=== PATIENT | male | born 1960 | race Caucasian/White ===

== ENCOUNTER 2018-08-31 07:52 | Emergency (ER) | payer SELFPAY ==
[~2018-08-31] VITALS: Wt 80.0 kg
[2018-08-31] MEDS ORDERED: ONDANSETRON 4 MG INJ IV STA (08:37)
[2018-08-31] MEDS ORDERED: LORAZEPAM 2 MG INJ IV STA (08:37)
[2018-08-31] MEDS ORDERED: SOD CHLORIDE 0.9% 1,000 ML IV STA (08:37)
[2018-08-31] MEDS ORDERED: MAGNESIUM SULFATE 2 GM, MULTIVITAMINS 10 ML, THIAMINE 100 MG, FOLIC ACID 1 MG in SOD CH... IV STA (08:37)
--- NOTE | 2018-08-31 10:05 | ERD ---
ER Documentation Chief Complaint Chief Complaint AP, BEEN DRINKING X 10 DAYS HPI This is a 57-year-old male with a history of alcohol abuse who presents to the ER for evaluation of abdominal cramping, nausea, vomiting. He states that he has been drinking liquor for the past 10 days. He denies any homicidal suicidal ideation and localized the pain to the midportion of the abdomen. Patient denies any fevers or chest pain or shortness of breath at this time. ROS All systems reviewed and are negative except as per history of present illness. PMhx/Soc Medical and Surgical Hx: Unable to obtain Hx Alcohol Use: Yes (binge for 10 days) Hx Substance Use: No Hx Tobacco Use: No Smoking Status: Never smoker Physical Exam Vitals Vital Signs Date Temp Pulse Resp B/P (MAP) Pulse Ox O2 O2 Flow FiO2 Time Delivery Rate 08/31/18 110 19 132/87 95 Room Air 09:14 (102) 08/31/18 98.0 141 18 178/99 99 07:54 (125) Physical Exam INITIAL VITAL SIGNS: Reviewed by me GENERAL: The patient is able to appearance, no acute distress HEENT: Dry mucous membranes, pupils equal, round, and reactive to light. EOMI. There is no scleral icterus. NECK: C-spine is soft and supple, there is no meningismus. There is no cervical lymphadenopathy. LUNGS: Clear to auscultation bilaterally. There are no rales, wheezes or rhonchi. HEART: Tachycardic, no murmurs, clicks, rubs or gallops. ABDOMEN: Soft, non-tender, non-distended. There are bowel sounds in all four quadrants. No rebound or guarding. EXTREMITIES: There is no peripheral cyanosis or edema. No focal swelling or erythema. NEUROLOGICAL: The patient moves all four extremities with 5/5 strength. Cranial nerves II - XII are intact. Normal gait. Alert and oriented SKIN: There is no apparent rash or petechiae. HEME/LYMPHATIC: There is no evidence of excessive bruising or lymphedema. PSYCHIATRIC: The patient does not appear anxious or depressed. Result Diagram: 08/31/1890308/31/18903 Results 24 hrs Laboratory Tests Test 08/31/18 09:04 White Blood Count 10.1 10^3/ul Red Blood Count 6.08 10^6/ul Hemoglobin 17.2 g/dl Hematocrit 49.5 % Mean Corpuscular Volume 81.4 fl Mean Corpuscular Hemoglobin 28.3 pg Mean Corpuscular Hemoglobin Concent 34.7 g/dl Red Cell Distribution Width 12.7 % Platelet Count 275 10^3/UL Mean Platelet Volume 10.9 fl Immature Granulocytes % 0.900 % Neutrophils % 73.1 % Lymphocytes % 16.2 % Monocytes % 8.8 % Eosinophils % 0.1 % Basophils % 0.9 % Nucleated Red Blood Cells % 0.0 /100WBC Immature Granulocytes # 0.090 10^3/ul Neutrophils # 7.4 10^3/ul Lymphocytes # 1.6 10^3/ul Monocytes # 0.9 10^3/ul Eosinophils # 0.0 10^3/ul Basophils # 0.1 10^3/ul Nucleated Red Blood Cells # 0.0 10^3/ul Sodium Level 140 mmol/L Potassium Level 4.5 mmol/L Chloride Level 97 mmol/L Carbon Dioxide Level 24 mmol/L Anion Gap 19 Blood Urea Nitrogen 7 mg/dl Creatinine 0.72 mg/dl Est Glomerular Filtrat Rate mL/min > 60 mL/min Glucose Level 151 mg/dl Calcium Level 9.9 mg/dl Magnesium Level 2.0 mg/dl Total Bilirubin 0.7 mg/dl Direct Bilirubin 0.00 mg/dl Indirect Bilirubin 0.7 mg/dl Aspartate Amino Transf (AST/SGOT) 63 IU/L Alanine Aminotransferase (ALT/SGPT) 42 IU/L Alkaline Phosphatase 96 IU/L Troponin I < 0.012 ng/ml Total Protein 8.9 g/dl Albumin 5.2 g/dl Globulin 3.70 g/dl Albumin/Globulin Ratio 1.40 Lipase 286 U/L Salicylates Level < 1.0 mg/dl Acetaminophen Level < 10.0 ug/ml Ethyl Alcohol Level 185.0 mg/dl Current Medications Medications Dose Sig/Barbi Start Time Status Last (Trade) Ordered Route PRN Stop Time Admin Dose Reason Admin Sodium 1,000 ml @ Q1H STAT 08/31/18 DC 08/31/18 Chloride 1,000 mls/hr IV 08:37 08/31/18 08:57 09:36 Ondansetron 4 mg ONCE STAT 08/31/18 DC 08/31/18 HCl (Zofran IV 08:37 08/31/18 08:58 Inj) 08:40 Magnesium 1,015.2 ml Q2H2M STAT 08/31/18 08/31/18 Sulfate 2 @ 500 mls/ IV 08:37 08/31/18 09:32 gm/ hr 10:38 Multivitamins 10 ml/Thiamine HCl 100 mg/Folic Acid 1 mg/Sodium Chloride Lorazepam 1 mg ONCE STAT 08/31/18 DC 08/31/18 (Ativan) IV 08:37 08/31/18 08:58 08:40 Procedures/MDM EKG: Rate/Rhythm: Sinus tachycardia QRS, ST, T-waves: [No changes consistent w/ acute ischemia] Impression: [No evidence of ischemia or arrhythmia] Chest X-ray 1V Interpreted by me: Soft Tissue: No acute abnormalities Bones: No acute abnormalities Mediastinum/Cardiac Silhouette/Lungs: [No acute abnormalities] This 57-year-old male presents to the emergency room for evaluation of abdominal cramping. On my examination the patient was tachycardic with dry mucous membranes. The patient did have an IV line established she was given 1 mg of Ativan, he is given 1 L fluids and a banana bag. Lab work is within normal limits including a lipase level. On reevaluation the patient's heart rate is now 99 bpm. He states he is feeling much better. The patient likely has alcoholic gastritis with a possible component of withdrawal. The patient will be discharged at this time with a prescription for Zantac and Librium. He was given strict return precautions. The patient does verbalize understanding and is okay with the plan of care at this time. Departure Diagnosis: Primary Impression: Alcohol withdrawal Additional Impressions: Dehydration Abdominal pain Condition: GAYE Gomez DO Aug 31, 2018 10:05
[2018-08-31] MEDS ORDERED: CHLO25CA9 PO (10:14)
[2018-08-31] MEDS ORDERED: RANI150T35 PO (10:14)
[2018-08-31 10:59] VITALS: BP 137/87; PULSE 122; RESP 18
== END 2018-08-31 11:24 | disposition home or self-care (01) ==
LOC: E/R 07:52
DX: R10.9 Unspecified abdominal pain (principal); F10.239 Alcohol dependence with withdrawal, unspecified; E86.0 Dehydration
CPT/HCPCS: 36415; 71045; 80053; 80307; 81001; 83690; 83735; 84484; 85025; 96374; 96375; 99284; J2060; J2405; J3411; J3475; J7030

== ENCOUNTER 2018-11-13 07:09 | Emergency (ER) | payer MEDICAID ==
[~2018-11-13] VITALS: Ht 172.7 cm; Wt 75.8 kg
[~2018-11-13 07:09] MED LIST: CHLO25CA9 PO; RANI150T35 PO
[2018-11-13 07:14] VITALS: Ht 172.7 cm; Wt 75.8 kg
[2018-11-13] MEDS ORDERED: FAMOTIDINE 20 MG INJ IV STA (07:24)
[2018-11-13] MEDS ORDERED: SOD CHLORIDE 0.9% 1,000 ML IV STA (07:24)
[2018-11-13] MEDS ORDERED: DEXTROSE 5%-0.45% NACL 500 ML BAG IV ONE (07:30)
[2018-11-13] MEDS ORDERED: FOLIC ACID 1 MG TAB PO ONE (07:30)
[2018-11-13] MEDS ORDERED: THIAMINE 100 MG TAB PO ONE (07:30)
[2018-11-13] MEDS ORDERED: DIAZEPAM 5 MG/ML SYG IV ONE (07:30)
--- NOTE | 2018-11-13 07:39 | ERD ---
ER Documentation Chief Complaint Chief Complaint abdominal pain ; been drinking alcohol x 1 week HPI 58 yo M with hx of etoh abuse here with N/V diarrhea. Epigastric and periumbilical abdominal pain that is present for 1 week, mild. On Bactrim for possible UTI, hx of BPH. No CP and no significant SOB. No hematemesis or melena noted. States he has to drink to make the pain better. During the patient's encounter translation services were utilized Language: Serbian Source: Video ROS All systems reviewed and are negative except as per history of present illness. Medications Home Meds Active Scripts Famotidine* (Pepcid*) 20 Mg Tablet, 20 MG PO BID for 10 Days, TAB Prov:MIRIAN CABRERA MD 11/13/18 Chlordiazepoxide* (Chlordiazepoxide*) 25 Mg Capsule, 25 MG PO Q8 PRN for CONTROL WITHDRAWAL SYMPTOMS, #10 CAP Prov:GAYE JEAN DO 08/31/18 Ranitidine Hcl* (Zantac*) 150 Mg Tablet, 150 MG PO BID PRN for EPIGASTRIC PAIN, #30 TAB Prov:GAYE JEAN DO 08/31/18 Allergies Allergies: Coded Allergies: No Known Allergy (Unverified , 11/13/18) PMhx/Soc History of Surgery: No Anesthesia Reaction: No Hx Neurological Disorder: No Hx Respiratory Disorders: No Hx Cardiac Disorders: No Hx Psychiatric Problems: No Hx Miscellaneous Medical Probl: Yes (prostate) Hx Alcohol Use: Yes (binge for 10 days) Hx Substance Use: No Hx Tobacco Use: Yes Smoking Status: Current some day smoker FmHx Family History: No diabetes Physical Exam Vitals Vital Signs Date Temp Pulse Resp B/P (MAP) Pulse Ox O2 O2 Flow FiO2 Time Delivery Rate 11/13/18 98.8 103 25 127/87 99 07:14 (100) Physical Exam General: Well developed, well nourished, no acute distress Head: Normocephalic, atraumatic. Eyes: Pupils equally reactive, EOM intact ENT: Moist mucous membranes Neck: Supple, no lymphadenopathy Respiratory: Lungs clear bilaterally, no distress Cardiovascular: RRR, no murmurs, rubs, or gallops Abdominal: Soft, non-tender, non-distended, no peritoneal signs, neg Daniel's : Deferred MSK: No edema, no unilateral swelling, 5/5 strength Neurologic: Alert and oriented, moving all extremities, normal speech, no focal weakness, no cerebellar signs, no tremor Skin: No rash Psych: Normal mood Result Diagram: 11/13/18 0744 11/13/18 0744 Results 24 hrs Laboratory Tests Test 11/13/18 07:44 White Blood Count 8.4 10^3/ul Red Blood Count 5.46 10^6/ul Hemoglobin 15.7 g/dl Hematocrit 45.1 % Mean Corpuscular Volume 82.6 fl Mean Corpuscular Hemoglobin 28.8 pg Mean Corpuscular Hemoglobin Concent 34.8 g/dl Red Cell Distribution Width 12.9 % Platelet Count 268 10^3/UL Mean Platelet Volume 10.7 fl Immature Granulocytes % 0.700 % Neutrophils % 52.6 % Lymphocytes % 35.4 % Monocytes % 9.3 % Eosinophils % 0.8 % Basophils % 1.2 % Nucleated Red Blood Cells % 0.0 /100WBC Immature Granulocytes # 0.060 10^3/ul Neutrophils # 4.4 10^3/ul Lymphocytes # 3.0 10^3/ul Monocytes # 0.8 10^3/ul Eosinophils # 0.1 10^3/ul Basophils # 0.1 10^3/ul Nucleated Red Blood Cells # 0.0 10^3/ul Sodium Level 144 mmol/L Potassium Level 4.1 mmol/L Chloride Level 101 mmol/L Carbon Dioxide Level 28 mmol/L Anion Gap 15 Blood Urea Nitrogen 8 mg/dl Creatinine 0.63 mg/dl Est Glomerular Filtrat Rate mL/min > 60 mL/min Glucose Level 141 mg/dl Calcium Level 9.2 mg/dl Total Bilirubin 0.4 mg/dl Direct Bilirubin 0.00 mg/dl Indirect Bilirubin 0.4 mg/dl Aspartate Amino Transf (AST/SGOT) 35 IU/L Alanine Aminotransferase (ALT/SGPT) 30 IU/L Alkaline Phosphatase 70 IU/L Total Protein 7.6 g/dl Albumin 4.6 g/dl Globulin 3.00 g/dl Albumin/Globulin Ratio 1.53 Lipase 208 U/L Current Medications Medications Dose Sig/Barbi Start Time Status Last (Trade) Ordered Route PRN Stop Time Admin Dose Reason Admin Sodium 1,000 ml @ Q1H STAT 11/13/18 DC 11/13/18 Chloride 1,000 mls/hr IV 07:24 07:46 6/19/19 08:23 Famotidine 20 mg ONCE STAT 11/13/18 DC 11/13/18 (Pepcid Iv) IV 07:24 07:36 11/13/18 07:25 500 ml ONCE ONCE 11/13/18 DC 11/13/18 Dextrose/Sodi IV 07:30 07:50 um Chloride 11/13/18 07:31 (D5-1/2ns) Thiamine 100 mg ONCE ONCE 11/13/18 DC 11/13/18 HCl PO 07:30 07:47 (Vitamin B1) 11/13/18 07:31 Folic Acid 1 mg ONCE ONCE 11/13/18 DC 11/13/18 (Folic Acid) PO 07:30 07:47 11/13/18 07:31 Diazepam 10 mg ONCE ONCE 11/13/18 DC 11/13/18 (Valium) IV 07:30 07:37 11/13/18 07:31 Procedures/MDM LAB INTERPRETATION: I reviewed the laboratory testing and it shows no evidence of acute process MEDICAL DECISION MAKING: The patient's presentation is consistent with likely chronic alcoholic gastritis. The patient's abdominal exam is benign without signs or symptoms concerning for comp occasions such as perforated ulcer, upper GI hemorrhage. The patient is evidence of possible mild withdrawal but no significant withdrawal syndrome. A single dose of benzodiazepine would be appropriate. The patient is not a good candidate for outpatient benzodiazepine therapy. He has poor insight into his disease process. Patient will benefit from laboratory testing to rule out acute pancreatitis. Pepcid, multivitamin, dextrose solution. ER COURSE: * Patient given IV fluids, dextrose solution, multivitamins. Symptoms improved. The patient is safe for discharge. Outpatient alcohol detox resources pr ovided to the patient. CONSULTATION: None DISPOSITION PLAN: The patient does not have an identifiable emergent medical condition that warrants inpatient hospitalization at this time. The patient is deemed safe for discharge with outpatient follow-up. We discussed follow up with the patient's primary care doctor within 24 to 48 hours as needed. We also discussed return to the emergency room for worsening symptoms or worsening condition. Outpatient referral: None required Discharge Medications: Pepcid Departure Diagnosis: Primary Impression: Alcoholic gastritis Chronicity: acute Gastritis bleeding: without bleeding Qualified Codes: K29.20 - Alcoholic gastritis without bleeding Additional Impressions: Alcohol abuse Epigastric abdominal pain Condition: Stable MIRIAN CABRERA MD Nov 13, 2018 07:39
[2018-11-13] MEDS ORDERED: FAMO-96 PO (09:05)
[2018-11-13 09:11] VITALS: BP 134/86; PULSE 79; RESP 18
== END 2018-11-13 09:22 | disposition home or self-care (01) ==
LOC: E/R 07:09
DX: K29.20 Alcoholic gastritis without bleeding (principal); F10.10 Alcohol abuse, uncomplicated; F17.210 Nicotine dependence, cigarettes, uncomplicated
CPT/HCPCS: 36415; 80053; 83690; 85025; 96361; 96374; 96375; J3360; J7030; Z7502; Z7610

== ENCOUNTER 2019-01-07 10:18 | Emergency (ER) | payer MEDICAID ==
[~2019-01-07] VITALS: Ht 172.7 cm; Wt 70.7 kg
[~2019-01-07 10:18] MED LIST changes: +FAMO-96 PO; +GARL1TAB2 PO; +OMEP20CA16 PO; +ONDA4TAB14 PO; +TAMS-14 PO
[2019-01-07 10:26] VITALS: Ht 172.7 cm; Wt 70.7 kg
[2019-01-07] MEDS ORDERED: SOD CHLORIDE 0.9% 1,000 ML IV STA (10:39)
[2019-01-07] MEDS ORDERED: ONDANSETRON 4 MG INJ IV STA (10:39)
[2019-01-07] MEDS ORDERED: morphine 4 MG/ML VIAL IV STA (10:39)
[2019-01-07 12:23] VITALS: BP 136/75; PULSE 69; RESP 18
--- NOTE | 2019-01-07 12:58 | ERD ---
ER Documentation Chief Complaint Chief Complaint ABD PAIN, NAUSEA, VOMITING, ONSET 4 DAYS HPI Patient is a 58-year-old male with gastritis who presents with abdominal pain. The patient has diffuse abdominal pain and says that he has been drinking alcohol for the past 4 days. He started with vomiting this morning. He was shaking and had spasms. He said that his primary doctor is Dr. Becker. He has had no treatment as of yet. Upon review of old medical records this is the patient's third visit to the ER for similar type complaint. ROS All systems reviewed and are negative except as per history of present illness. Medications Home Meds Active Scripts Ondansetron (Ondansetron Odt) 4 Mg Tab.rapdis, 4 MG PO Q6H PRN for NAUSEA AND/OR VOMITING, #10 TAB Prov:PASCUAL AVILA MD 01/07/19 Reported Medications Garlic (Garlic) 1 Each Tablet, 1 EACH PO DAILY, TAB 01/07/19 Tamsulosin Hcl* (Flomax*) 0.4 Mg Cap.er.24h, 0.8 MG PO HS, CAP 01/07/19 Omeprazole* (Omeprazole*) 20 Mg Capsule.dr, 20 MG PO DAILY, #30 CAP 01/07/19 Discontinued Scripts Famotidine* (Pepcid*) 20 Mg Tablet, 20 MG PO BID for 10 Days, TAB Prov:MIRIAN CABRERA MD 11/13/18 Chlordiazepoxide* (Chlordiazepoxide*) 25 Mg Capsule, 25 MG PO Q8 PRN for CONTROL WITHDRAWAL SYMPTOMS, #10 CAP Prov:GAYE JEAN DO 08/31/18 Ranitidine Hcl* (Zantac*) 150 Mg Tablet, 150 MG PO BID PRN for EPIGASTRIC PAIN, #30 TAB Prov:GAYE JEAN DO 08/31/18 Allergies Allergies: Coded Allergies: No Known Allergy (Unverified , 01/07/19) PMhx/Soc Medical and Surgical Hx: pt denies Medical Hx, pt denies Surgical Hx History of Surgery: No Anesthesia Reaction: No Hx Neurological Disorder: No Hx Respiratory Disorders: No Hx Cardiac Disorders: No Hx Psychiatric Problems: No Hx Miscellaneous Medical Probl: Yes (BPH, Gastritis) Hx Alcohol Use: Yes (binge for 4 days last drink was at 0700) Hx Substance Use: Yes (Marijuana use daily) Hx Tobacco Use: No Smoking Status: Light tobacco smoker FmHx Family History: diabetes Physical Exam Vitals Vital Signs Date Temp Pulse Resp B/P (MAP) Pulse Ox O2 O2 Flow FiO2 Time Delivery Rate 01/07/19 97.7 69 18 136/75 100 Room Air 12:23 (95) 01/07/19 69 18 145/78 18 Room Air 11:32 (100) 01/07/19 97.7 90 19 154/89 98 10:26 (110) Physical Exam Const: Moderate distress Head: Atraumatic Eyes: Normal Conjunctiva ENT: Normal External Ears, Nose and Mouth. Neck: Full range of motion. No meningismus. Resp: Clear to auscultation bilaterally Cardio: Regular rate and rhythm, no murmurs Abd: Soft, non tender, non distended. Normal bowel sounds Skin: No petechiae or rashes Back: No midline or flank tenderness Ext: No cyanosis, or edema Neur: Awake and alert Psych: Normal Mood and Affect Result Diagram: 01/07/19 1045 01/07/19 1045 Results 24 hrs Laboratory Tests Test 01/07/19 10:45 White Blood Count 15.0 10^3/ul Red Blood Count 5.17 10^6/ul Hemoglobin 15.1 g/dl Hematocrit 44.5 % Mean Corpuscular Volume 86.1 fl Mean Corpuscular Hemoglobin 29.2 pg Mean Corpuscular Hemoglobin Concent 33.9 g/dl Red Cell Distribution Width 13.1 % Platelet Count 245 10^3/UL Mean Platelet Volume 11.4 fl Immature Granulocytes % 0.500 % Neutrophils % 91.0 % Lymphocytes % 5.3 % Monocytes % 2.8 % Eosinophils % 0.0 % Basophils % 0.4 % Nucleated Red Blood Cells % 0.0 /100WBC Immature Granulocytes # 0.080 10^3/ul Neutrophils # 13.6 10^3/ul Lymphocytes # 0.8 10^3/ul Monocytes # 0.4 10^3/ul Eosinophils # 0.0 10^3/ul Basophils # 0.1 10^3/ul Nucleated Red Blood Cells # 0.0 10^3/ul Urine Color YELLOW Urine Clarity CLEAR Urine pH 5.0 Urine Specific [place] 1.025 Urine Ketones 2+ mg/dL Urine Nitrite NEGATIVE mg/dL Urine Bilirubin NEGATIVE mg/dL Urine Urobilinogen NEGATIVE mg/dL Urine Leukocyte Esterase NEGATIVE Roger/ul Urine Microscopic RBC 1 /HPF Urine Microscopic WBC 2 /HPF Urine Bacteria FEW /HPF Urine Mucus FEW /HPF Urine Hemoglobin NEGATIVE mg/dL Urine Glucose NEGATIVE mg/dL Urine Total Protein 1+ mg/dl Sodium Level 142 mmol/L Potassium Level 4.1 mmol/L Chloride Level 101 mmol/L Carbon Dioxide Level 23 mmol/L Anion Gap 18 Blood Urea Nitrogen 19 mg/dl Creatinine 0.73 mg/dl Est Glomerular Filtrat Rate mL/min > 60 mL/min Glucose Level 153 mg/dl Calcium Level 9.6 mg/dl Total Bilirubin 0.6 mg/dl Direct Bilirubin 0.00 mg/dl Indirect Bilirubin 0.6 mg/dl Aspartate Amino Transf (AST/SGOT) 30 IU/L Alanine Aminotransferase (ALT/SGPT) 28 IU/L Alkaline Phosphatase 79 IU/L Total Protein 8.1 g/dl Albumin 4.8 g/dl Globulin 3.30 g/dl Albumin/Globulin Ratio 1.45 Lipase 28 U/L Current Medications Medications Dose Sig/Barbi Start Time Status Last (Trade) Ordered Route PRN Stop Time Admin Dose Reason Admin Sodium 1,000 ml @ Q1H STAT 01/07/19 DC 01/07/19 Chloride 1,000 mls/hr IV 10:39 10:45 01/07/19 11:38 Morphine 4 mg ONCE STAT 01/07/19 DC 01/07/19 Sulfate IV 10:39 10:45 (morphine) 01/07/19 10:41 Ondansetron 4 mg ONCE STAT 01/07/19 DC 01/07/19 HCl (Zofran IV 10:39 10:45 Inj) 01/07/19 10:41 Procedures/MDM Patient is a 58-year-old male presents with crampy abdominal pain after drinking for 4 days. I believe his symptoms are likely related to alcohol abuse and gastritis. The patient had basically normal laboratory studies and was given Zofran for symptomatic relief. The patient will be discharged with a prescription for symptomatic relief. I believe the risk of doing a CT scan of the abdomen and pelvis outweigh the benefits. I doubt discitis, cholecystitis, pancreatitis, or bowel obstruction. Departure Diagnosis: Primary Impression: Alcohol abuse Additional Impression: Abdominal pain Abdominal location: generalized Qualified Codes: R10.84 - Generalized abdominal pain Condition: Fair Patient Instructions: Abdominal Pain, Alcohol Abuse Referrals: Dr. Becker Additional Instructions: Llame al doctor MAANA y ruel jacques DOMENIC PARA DENTRO DE 1-2 GARCIA.Dgale a la secretaria que nosotros le instruimos hacer esta domenic.Avise o llame si porter condicin se empeora antes de la domenic. Regresa aqui si peor o no mejor. PASCUAL AVILA MD Jan 07, 2019 12:58
== END 2019-01-07 12:24 | disposition home or self-care (01) ==
LOC: E/R 10:18
DX: F10.10 Alcohol abuse, uncomplicated (principal); F17.210 Nicotine dependence, cigarettes, uncomplicated
CPT/HCPCS: 36415; 80053; 81001; 83690; 85025; 96374; 96375; J2270; J2405; J7030; Z7502; Z7610